=== PATIENT | female | born 1950 | race Caucasian/White ===

== ENCOUNTER → 2025-05-14 | Outpatient (CLI) | payer MEDICARE ==
--- NOTE | 2025-05-14 19:12 | HMCIMG ---
EXAM: XR Chest, 2 View(s). CLINICAL HISTORY: 75-year-old female with shortness of breath. COMPARISON: None provided. FINDINGS: LUNGS: Trace infiltrate in the right middle lobe. PLEURAL SPACES: No pleural effusion or pneumothorax. HEART: The heart size is normal. There is an ectatic aorta. BONES: No acute osseous abnormality. SOFT TISSUES: Bilateral breast implants are seen. IMPRESSION: 1. Trace infiltrate in the right middle lobe. 2. Ectatic aorta. 3. Bilateral breast implants. /[place]
--- NOTE | 2025-05-14 22:25 | HMCIMG ---
EXAM: XR Thoracic spine, 2 Views total. CLINICAL HISTORY: 75 year old female with pain in the thoracic spine COMPARISON: None provided. FINDINGS: BONES: No acute fracture or aggressive appearing osseous lesion. Posterior vertebral body alignment is within normal limits in the thoracic spine. DISCS/DEGENERATIVE CHANGES: Moderate degenerative changes are noted in the thoracic spine. SOFT TISSUES: No prevertebral soft tissue swelling evident in the thoracic spine. The visualized lungs appear clear. IMPRESSION: 1. No acute abnormality evident in the thoracic spine. 2. Moderate degenerative changes in the thoracic spine. /[place]
--- NOTE | 2025-05-14 22:27 | HMCIMG ---
EXAM: XR Left Hip, 3 Views. CLINICAL HISTORY: 75 year old female with pain in the left hip. COMPARISON: None provided. FINDINGS: BONES: No acute fracture or focal osseous lesion. JOINTS: No dislocation. The joint spaces are normal. SOFT TISSUES: The soft tissues are unremarkable. IMPRESSION: 1. No acute fracture or dislocation of the left hip. /[place]
== END | disposition home or self-care (01) ==
LOC: RAH 10:17
PROVIDERS: ATTEND Nurse Practitioner Adult Health
DX: M47.814 Spondylosis without myelopathy or radiculopathy, thoracic region (principal); I77.819 Aortic ectasia, unspecified site; M54.6 Pain in thoracic spine; R06.02 Shortness of breath; M25.552 Pain in left hip; Z98.82 Breast implant status
CPT/HCPCS: 71046; 72070; 73502